=== PATIENT | male | born 1995 ===

== ENCOUNTER 2022-12-10 16:38 | Emergency (ER) | payer OTHER ==
[~2022-12-10] VITALS: Ht 170.2 cm; Wt 59.1 kg
[2022-12-10 16:46] VITALS: BP 118/63; PULSE 99; RESP 18; TEMP 97.4
== END 2022-12-10 18:47 | disposition home or self-care (01) ==
LOC: EMS 16:45
DX: Z20.2 Contact with and (suspected) exposure to infections with a predominantly sexual mode of transmission (principal); F17.210 Nicotine dependence, cigarettes, uncomplicated; F12.90 Cannabis use, unspecified, uncomplicated
CPT/HCPCS: 99281; Z7502